=== PATIENT | female | born 1985 | race Caucasian/White ===

== ENCOUNTER → 2021-03-11 14:50 | Outpatient (BNVA) | payer BC, SELFPAY | PROVIDERS: Family Provider Family Medicine; PCP Specialist; Visit Provider Obstetrics & Gynecology | DX: N93.9 Abnormal uterine and vaginal bleeding, unspecified (principal); R39.89 Other symptoms and signs involving the genitourinary system; Z12.4 Encounter for screening for malignant neoplasm of cervix | CPT/HCPCS: 81000; 87077; 87086; 87184; 88175; 88305 ==

== ENCOUNTER → 2021-03-17 10:10 | Outpatient (BNVA) | payer BC, SELFPAY | PROVIDERS: Family Provider Family Medicine; PCP Specialist; Visit Provider Obstetrics & Gynecology | DX: N93.9 Abnormal uterine and vaginal bleeding, unspecified (principal) | CPT/HCPCS: 76830 ==

== ENCOUNTER → 2021-08-01 10:20 | Outpatient (BNVA) | payer BC, SELFPAY | PROVIDERS: Family Provider Family Medicine; PCP Family Medicine; Visit Provider Obstetrics & Gynecology | DX: E03.9 Hypothyroidism, unspecified (principal); N94.6 Dysmenorrhea, unspecified | CPT/HCPCS: 83036; 83525; 84443 ==

== ENCOUNTER → 2021-08-11 10:10 | Outpatient (BNVA) | payer BC, SELFPAY | PROVIDERS: Family Provider Family Medicine; PCP Family Medicine; Visit Provider Obstetrics & Gynecology | DX: Z20.822 Contact with and (suspected) exposure to COVID-19 (principal); E03.9 Hypothyroidism, unspecified; N85.2 Hypertrophy of uterus; N93.9 Abnormal uterine and vaginal bleeding, unspecified | CPT/HCPCS: 87635 ==

== ENCOUNTER → 2025-03-13 14:12 | Outpatient (BNVA) | payer BC, SELFPAY | PROVIDERS: PCP Family Medicine; Visit Provider Family Medicine | DX: E03.9 Hypothyroidism, unspecified (principal); N93.9 Abnormal uterine and vaginal bleeding, unspecified; R63.4 Abnormal weight loss; Z86.32 Personal history of gestational diabetes; E16.1 Other hypoglycemia | CPT/HCPCS: 80053; 83036; 84439; 84481; 85025 ==

== ENCOUNTER 2025-08-22 20:04 | Emergency (ER) | payer BC, SELFPAY ==
--- OUTSIDE RECORDS SUMMARY | 2010-02-09 05:26 | XMS_ITS | Continuity of Care Document ---
Author Organization [facility] Address [address] [place] [id number] Phone Care Team Providers Care Microgrinder Operator Name Role Phone Maximo Ojeda MD Unavailable Unavailable Advance Directives Directive Yes / No Effective Date File Name No Information Encounters Encounter Description Practice Location Reason(s) For Visit Diagnoses Date Provider Providers Copied on Encounter [facility], [address] [place] [address], [id number], [place] tel:[phone] [facility] No Information Rusty Marsh. [address] [place] [place], [place], [id number], [place]. tel:[phone] Family History Family Member Type Diagnosis Age At Onset No Information Payers Payer name Insurance type Covered alliance party ID Authoriza tion(s) No Information Social History Type Description Quantity Date Captured Comments Sex Female Smoking Status No Information Chief Complaint And Reason For Visit No Information Reason For Referral Reason For Referral No Information History Of Present Illness Encounter Date Complaint History Of Prese nt Illness No Information Functional Status Date Functional Assessmen t No Information Instructions Date Instruction Additional Infor mation No Information Assessments Type Assessment Date No Information Patient Care Teams Name Effective Dates (start - stop) Status Members No Information
--- OUTSIDE RECORDS SUMMARY | 2015-01-20 07:30 | XMS_ITS | Continuity of Care Document ---
Author Organization [facility] Address [address] [place] [address] Phone Care Team Providers Care Classified Ad Clerk Name Role Phone Unavailable Unavailable Unavailable Allergies, Adverse Reactions, Alerts Substance Reaction Status Criticality No Known Allergies Active No Inform ation Medications Medication Instructions Dosage Effective Dates (start - stop) Status Comments alprazolam 0.5 mg tablet take 1 tablet by oral route 3 times every day 0.5 MG - Active Procedures Procedure Date WHFO,no joint, prefabricated OFFICE/OUTPATIENT VISIT, NEW Advance Directives Directive Yes / No Effective Date File Name No Information Encounters Encounter Description Practice Location Reason(s) For Visit Diagnoses Date Provider Providers Copied on Encounter OFFICE/OUTPAT IENT VISIT, NEW [facility], [address], [place], [id number], tel:[phone] [facility] wrist pain (chief complaint) De Quervain disease No Information Referring Provider: Santos Marsh, [facility] [place], [address] . tel:[phone] Family History Family Member Type Diagnosis Age At Onset Son Problem (finding) attention defi cit hyperactivity disorder Maternal grandmother Problem (finding) breast cancer Father Problem (finding) diabetes melli tus in first degree relative Paternal grandfather Problem (finding) malignant melan cr Mother Problem (finding) Endometriosis Payers Payer name Insurance type Covered libertarian ID Authoriza tion(s) [place] Medicaid [id number] Social History Type Description Quantity Date Captured Comments Alcohol Use Details beer 4 beers weekly Caffeine Use Details coffee and tea Tobacco Use Status Occasional cigarette smoker Smoking Status Heavy tobacco smoker Smoking Tobacco Use Details Cigarette: No Details Available Cigarette: 1 Packs per day Sex Female Vital Signs Date / Time: Height Weight BMI Pulse Rate Blood Pressure Temperature Respiratory Rate Body Surface Area Head Circumference Head Circ. Percentile Wt./Juan. Percentile BMI percentile Pulse Ox Inhaled Ox 2:15 PM 65.00 in 106.503 kg (234.80 lbs) 39.0 7 kg/m eter (2) 76 /min 108/76 mm[Hg] 99 % Chief Complaint And Reason For Visit From encounter dated '01/20/2015 13:30'. wrist pain (chief complaint). Description: Onset: 1 day ago. Severity level is 6. It occurs intermittently and is fluctuating. Location: right wrist. There is no radiation. The pain is sharp. Context: there is an injury. The pain is aggravated by lifting, movement and pushing. There are no relieving factors. Associated symptoms include decreased mobility and swelling. Pertinent negatives include bruising, joint tenderness, limping, locking and numbness. Reason For Referral Reason For Referral No Information History Of Present Illness Encounter Date Complaint History Of Prese nt Illness wrist pain Onset: 1 day ago . Severity level is 6. It occurs intermittently and is fluctuating. Location: right wrist. There is no radiation. The pain is sharp. Context: there is an injury. The pain is aggravated by lifting, movement and pushing. There are no relieving factors. Associated symptoms include decreased mobility and swelling. Pertinent negatives include bruising, joint tenderness, limping, locking and numbness. Functional Status Date Functional Assessmen t No Information Instructions Date Instruction Additional Infor rene Pt was given [place] medical size medium right thumb spica. Pt was directed to use her right thumb spica while at work for at least two weeks and then to continue using her writst brace at home. Pt was also instructed to continue icing her wrist and take ibuprofen as needed. Prognosis is good. Pt instructed to rtc if symptoms persist. Pt agreed to plan and had no further questions. Related to De Quervain disease Assessments Type Assessment Date assessment De Quervain disease Mental Status Date Cognitive Assessment Orientation - [place] ed to time, place, person, situation. Patient Care Teams Name Effective Dates (start - stop) Status Members No Information
--- OUTSIDE RECORDS SUMMARY | 2025-08-22 20:11 | XMS_ITS | Data Portability ---
Author Organization [facility] [place] [facility] Address [address] [facility] [address] [place] [address] Care Team Providers Care Tool Designer Apprentice Name Role Phone CLIFTON ARGUELLO Primary Care Provider Unavaila ble Assessment Encounter Date Assessment Date Assessment LastModified by Organization Details LastModified Time 11/22/2023 11/22/2023 Difficult to determine if the pain and symptoms are related to cervical radiculopathy or if there is a significant rotator cuff injury. Based on exam rotator cuff injury is definitely a concern. The patient has done conservative measures and has significant uncontrolled pain. Recommend we proceed with MRI. Will transition to Flexeril to see if this improves her discomfort and add tramadol. dcrase Not available 11/24/2023 16:46:29 11/28/2023 11/28/2023 Injections offered. She wants to wait for now. I am not sure what caused her rash. Not available 11/29/2023 06:23:16 12/11/2023 12/11/2023 consider pt if not resolving with conservative measures. Not available 01/19/2024 16:50:04 06/16/2024 06/16/2024 Restricted to less that 30 lbs of smooth lifting. Cannot go back to regular lifting until 2 months post surgery. Not available 06/16/2024 16:54:53 Plan of Treatment Reminders Order Date Submit Date Provider Last Modified By Organization Details Last Modified Time Details Appointments None record ed. Lab None record ed. Referral donita light referr al 2023 Cassandra Daniels ([facility]), [address], [place], [address], 4 09:58:43 Procedures None record ed. Surgeries None record ed. Imaging MRI, should er, w/o contra st 2023 024 [facility], [address], [place], [address], 4 10:36:08 Medication Orders meloxi cam 15 mg tablet 2023 024 [place] [facility] [employer] [facility] #94459, [address], [place], [place], [id number], 4 15:03:21 meloxi cam 15 mg tablet 2023 024 [place] [facility] [employer] [facility]03641, [address], [place], [place], [id number], 4 12:19:42 cyclob enzapr ine 10 mg tablet 2023 024 [facility] [employer] [facility] #90159, [address], [place], [place], [id number], 4 14:04:08 meloxi cam 15 mg tablet 2023 024 [facility], [address], [place], [place], [id number], 4 16:24:49 cyclob enzapr ine 10 mg tablet 2023 024 [facility] [employer] [facility] #23130, [address], [place], [place], [id number], 4 14:04:08 tramad ol 50 mg tablet 2023 0[facility] [employer] [facility], [address], [place], [place], [id number], 4 11:21:01 Patient TargetsNo targets recorded. Patient InstructionsNo instructions recorded. Reason for Referral General Surgeon Referral for Umbilical hernia Referring Physician: Clifton Arguello, Family Medicine, Encounter Date: 03/17/2024 Problems Name Problem SNOMED Code Status Onset Date Resolution Date Notes Provider Name and Address Organization Details Recorded Time section Active 2018 C-secti on 5; 7; 09/09/09 ; 019 2:56PM by Alice Colmenares LPN, Office Visit; Promote d; acuity set as *; Not Available [facility] 3 03:12:59 Appendecto my Active 2018 Appende ctomy; 02/10/08; 019 2:56PM by Alice Colmenares LPN, Office Visit; Promote d; acuity set as *; Not Available [facility] 3 03:12:59 History of tubal ligation 499295635 Active 2018 Tubal Ligatio n; 09/2009 ; 019 2:56PM by Alice Colmenares LPN, Office Visit; Promote d; acuity set as *; Not Available [facility] 3 03:13:01 Hypothyroi dism 51085756 Active 2022 [facility] null, [facility] 3 09:43:45 Skin lesion 56704534 Active 2022 [facility] null, [facility] 3 09:44:04 Adult health examinatio n Active 2022 [facility] null, [facility] 3 09:48:11 Pain of right shoulder joint 363315890233 80968 Active 2023 Bennett Daley MD [address] [place] [address], [phone] , [facility] 4 17:21:48 Cervical radiculopa thy 93115766 Active 2023 Bennett Daley MD [address] [place], [address] , [facility] 4 17:24:23 Allergic reaction to drug 226436918 Active 2023 NELLIE CLARENCE null, [facility] 4 15:53:02 Problem Notes None recorded. Procedures Surgical History Date Name Laterality Status Provider Name and Address Organization Details Recorded Time 05/15/20 24 Hernia Repair completed [facility] 06/16/2024 16:14:07 Appendectomy completed [facility] 09/13/2023 12:54:50 delivery completed [facility] 09/13/2023 12:55:14 Imaging Results None recorded. Procedure Notes None recorded. Medical Equipment None Reported. Allergies No known drug allergies Medications Name Sig Start Date Stop Date Status Note LastModified by Organization Details LastModified Time cyclobenz aprine 10 mg tablet TAKE 1 TABLET BY MOUTH EVERY DAY NEEDED 03/17 completed Not Available Not Available Not Available levothyro xine 175 mcg tablet TAKE 1 TABLET BY MOUTH EVERY DAY 09/13 completed Not Available Not Available Not Available ibuprofen 800 mg tablet TAKE 1 TABLET BY MOUTH EVERY 8 HOURS NEEDED FOR PAIN 12/10 completed Not Available Not Available Not Available meloxicam 15 mg tablet TAKE 1 TABLET BY MOUTH EVERY DAY 2023 active vo JR/tn Not Available Not Available Not Avai lable prednison e 20 mg tablet TAKE 3 TABLETS BY MOUTH DAILY FOR 5 DAYS 12/10 completed Not Available Not Available Not Available penicilli n V potassium 500 mg tablet TAKE 1 TABLET BY MOUTH FOUR TIMES DAILY UNTIL FINISHED 09/13 completed Not Available Not Available Not Available hydrocodo ne 10 mg-acetam inophen 325 mg tablet 09/13 completed Not Available Not Available Not Available tramadol 50 mg tablet TAKE 1 TABLET BY MOUTH EVERY 6 HOURS NEEDED 12/10 completed Not Available Not Available Not Available methocarb anila 750 mg tablet TAKE 1 TABLET BY MOUTH THREE TIMES DAILY NEEDED FOR PAIN 12/10 completed Not Available Not Available Not Available hydrocodo ne 7.5 mg-acetam inophen 325 mg tablet TAKE 1 TABLET BY MOUTH EVERY 6 HOURS FOR 7 DAYS NEEDED FOR PAIN 06/16 completed Not Available Not Available Not Available levothyro xine 125 mcg tablet TAKE 1 TABLET BY MOUTH EVERY DAY 12/10 completed dose change Not Available Not Available Not Available pramipexo le 0.125 mg tablet Take 1 tablet every day by oral route. 12/10 completed Not Available Not Available Not Available docusate sodium 100 mg capsule TAKE ONE CAPSULE BY MOUTH TWICE DAILY FOR 7 DAYS 06/16 completed Not Available Not Available Not Available levothyro xine 112 mcg tablet TAKE 1 TABLET BY MOUTH EVERY DAY 2024 active vo JR/tn Not Available Not Available Not Avai lable ProAir HFA 90 mcg/actua tion aerosol inhaler every four hours, as needed 09/13 completed 1 inhaler; Recorded 12/29/19 22 4:26PM by Falguni Campbell, Phone Encounte r; Refill Quantity : 0; Not Available Not Available Not Available Vitals Date Recorded Body height Body mass index (BMI) Body weight Oxygen saturation Oxygen saturation in Arterial blood by Pulse oximetry Heart rate Respiratory rate Body temperature Provider Name and Address Organization Details Last Updated DateTime 4 157.48 cm 38.2 kg/m2 90042.8 1 g 98 % 98 % 69 /min 16 /min 97.3 [degF] Brandee Llamas [facility] 4 17:10:26 Date Recorded Body height Body mass index (BMI) Body weight Oxygen saturation Oxygen saturation in Arterial blood by Pulse oximetry Heart rate Respiratory rate Body temperature Systolic And Diastolic Provider Name and Address Organization Details Last Updated DateTime 4 157.48 cm 39.2 kg/m2 40304.8 7 g 99 % 99 % 92 /min 18 /min 98.2 [degF] 150/94 mm[Hg] NELLIE CLARENCE [facility] 4 15:48:48 Date Recorded Body height Body mass index (BMI) Body weight Oxygen saturation Oxygen saturation in Arterial blood by Pulse oximetry Heart rate Respiratory rate Body temperature Systolic And Diastolic Provider Name and Address Organization Details Last Updated DateTime 4 157.48 cm 39.4 kg/m2 64552.1 6 g 98 % 98 % 80 /min 18 /min 98.6 [degF] 120/74 mm[Hg] [facility] 4 11:32:48 Date Recorded Body height Body weight Body mass index (BMI) Oxygen saturation Oxygen saturation in Arterial blood by Pulse oximetry Heart rate Respiratory rate Body temperature Systolic And Diastolic Provider Name and Address Organization Details Last Updated DateTime 4 157.48 cm 36553.4 6 g 37 kg/m2 98 % 98 % 60 /min 18 /min 98.1 [degF] 112/76 mm[Hg] [facility] [place] [facility] 4 16:22:54 Social History Question Answer Notes LastModified by makeena Details LastModified Time Tobacco Smoking Status Former Smoker [facility] 09/13/2023 12:52:34 When Did You Quit Smoking? 1-5yearssinc elastcigaret te Information not available 09/13/2023 Sex: Unknown Functional Status Question Answer Note LastModified by [employer] Details LastModified Time Do you use any illicit or recreational drugs? Yes occ marijuana gummi for restless leg Information not available 09/13/2023 What is your level of alcohol consumption? None Information not available 09/13/2023 Are you able to care for yourself independently? Yes Information not available 09/13/2023 Mental Status None recorded. Family History Nothing Reported Notes:Insulin Dependent Diab etes Mellitus; Maternal Grandfather, Maternal Grandmother, Maternal Aunt, Heart disease Maternal Grandmother: Hypothyroidism, Breast Cancer Mother: Hypothyroidism, Lung Cancer Medical History No medical history recorded. Gynecological HistoryNo gynecological history recorded. Obstetrics History GPAL:G 0 P 0 0 0 0 Immunizations Vaccine Type Date Status Note Provider Nam e and Address Organization Details Recorded Time IPV 7 completed NELLIE LIMA null, [facility] 11/28/2023 15:40:49 IPV 1 completed NELLIEANN LIMA null, [facility] 11/28/2023 15:40:49 IPV 8 completed NELLIEANN LIMA null, [facility] 11/28/2023 15:40:49 MMR 4 [facility] 11/28/2023 15:40:49 MMR 8 completed NELLIE LIMA null, [facility] 11/28/2023 15:40:49 Tdap 1 completed NELLIE LIMA null, [facility] 11/28/2023 15:40:49 Td (adult), 2 Lf tetanus toxoid, preservative free, adsorbed 2 completed NELLIE LIMA null, [facility] 11/28/2023 15:40:49 Hep B, adolescent or pediatric 4 completed NELLIE LIMA null, [facility] 11/28/2023 15:40:49 Hep B, adolescent or pediatric 3 completed NELLIE strong [facility] 11/28/2023 15:40:49 Hep B, adolescent or pediatric 3 completed NELLIE CLARENCE null, [facility] 11/28/2023 15:40:49 Hep A, ped/adol, 2 dose 4 completed NELLIE CLARENCE null, [facility] 11/28/2023 15:40:49 Hep A, ped/adol, 2 dose 3 completed NELLIE CLARENCE null, [facility] 11/28/2023 15:40:49 DTaP 7 completed NELLIE CLARENCE null, [facility] 11/28/2023 15:40:49 DTaP 1 completed NELLIE CLARENCE null, [facility] 11/28/2023 15:40:49 DTaP 8 completed NELLIE CLARENCE null, [facility] 11/28/2023 15:40:49 Hep B, adolescent or pediatric 3 completed NELLIE CLARENCE null, [facility] 11/28/2023 15:40:49 Past Encounters Encounter ID Performer Location Encounter Start Date Encounter Closed Date Diagnosis/Indication Diagnosis SNOMED-CT Code Diagnosis ICD10 Code Diagnosis IMO Codes Diagnosis Note [id number] Clifton Arguello MD [facility] ([facility]) [address] [place] [phone] 12/29/2022 09:20:14 12/29/2022 10:41:05 Hypothyroidism 27297389 E03.9 Skin lesion 89810311 L98 .9 Adult heal th examination 132114459 Z00.00 Hyperglycemia 38909225 R 73.9 [id number] Clifton Arguello MD [facility] ([facility]) [address] [place] [phone] 09/13/2023 12:42:40 09/22/2023 09:12:59 Hypothyroidism 12091837 E03.9 Restless l egs syndrome 39438135 G25.81 [id number] Bennett Daley MD [facility] ([facility]) [address] [place] [phone] 11/22/2023 16:48:58 11/22/2023 17:13:10 Pain of right shoulder joint 5959574615 1685334 M25.511 Cervical radiculopathy 58487060 M54.12 [id number] Clitfon Arguello MD [facility] ([facility]) [address] [place] [id number] 11/28/2023 15:32:49 11/28/2023 16:29:36 Pain of right shoulder joint 9675028122 3612319 M25.511 Allergic r eaction to drug 303906596 T50.905A [id number] Clifton Arguello MD [facility] ([facility]) [address] [place] [phone] 12/11/2023 10:39:47 12/11/2023 13:06:18 Pain of right shoulder joint 6318199997 3646458 M25.759 [id number] Clifton Arguello MD [facility] ([facility]) [address] [place] [phone] 03/17/2024 13:48:06 03/17/2024 15:59:40 Umbilical hernia 138485521 K42.9 Pain of ri ght shoulder joint 0523798820 0973848 M25.511 Pain of left wrist 73293 70613 95369 M25.532 Synovial c yst of wrist 402747575 M71.931 [id number] Clifton Arguello MD [facility] ([facility]) [address] [place] [id number] 06/16/2024 14:54:25 06/16/2024 17:01:51 Postoperative visit 413119398 Z48.89 Health Concerns Section Related Observation LastModified by Organization Detai ls LastModified Time None Recorded Concern Status LastModified by Organization Details LastModified Time None Recorded Advance Directives Directive None Recorded Payers Insurance Date Sequence Insurance Name Policy Number Policy Velasquez Covered Member ID Velasquez Member ID Guarantor Name 03/17/2024 1 *SELF PAY* [facility] Le[facility] 06/18/2024 1 [facility] ([facility]) [id number] Antwan Lebron [id number] Trinidad Lebron 06/27/2023 1 [facility] [place] [facility] [id number] Antwan Lebron [id number] Trinidad Lebron Notes Date Note Type Note Provider Name and Address Organization Details Recorded Time 4 text/html Musculoskeletal PainReported by PatientHPIFor quality, patient reportssharpandtingling. For severity, patient reportsdriving impairment,worsening,interf eres with sleep, andinterferes with work/school. For associated symptoms, patient reportstinglingandnumbness of the legs/feetbut reportsno feverandno weak limbs. For location, patient reportsright shoulder,right arm,right elbow,right wrist, andright hand. For duration, patient reportspresent <1 month(started 14 days ago). For timing, patient reportsdate of onset: (14 days ago),intermittent,pain at night, andsudden. For context, patient reportsunusual activity. For alleviating factors, patient reportsmedications: motrin, methocarbanol, prednisone. For aggravating factors, patient reportsmovement/positioning andtwisting. For adls affected, patient reportsdressing. For prior tests/treatments, (gabapentin of mother in laws; 's pain medication).ROS as noted in the HPI Bennett Daley MD [address] [place] [address], [phone], [facility] 11/24/2023 16:46:48 4 text/html General Rash/Skin LesionReported by PatientHPIFor quality, patient reportsitchy,red, andmultiple. For location, patient reportschest,abdomen, andlegs. For severity, patient reportsmoderate. Right shoulder pain, decreased ROM Clifton Arguello MD [address] [place] [address], [phone], [facility] 11/29/2023 06:23:26 4 text/html Musculoskeletal PainReported by PatientHPIFor quality, patient reportssharp. For severity, patient reportsdriving impairment,worsening,interf eres with sleep, andinterferes with work/school. For location, patient reportsright shoulder,right arm,right elbow, andright hand. For timing, patient reportsconstant,pain at night, andsudden. For aggravating factors, patient reportsmovement/positioning andtwisting. For associated symptoms, patient reportsno fever. For duration, (started the end of october).ROS as noted in the HPI Pt has sharp pain in her right side from her neck to her forearm, at times swelling in her collar bone and arm, Pt states she took the meloxicam and her last muscle relaxer this morning, when she takes them she will get some relief for a couple hours Clifton Arguello MD [address] [place] [address], [phone], [facility], [facility] 01/19/2024 16:50:12 4 text/html Abdominal PainReported by PatientAbdominal PainFor quality, patient reportsachingandsharp. For associated symptoms, patient reportsnauseabut reportsno fever,no shortness of breath,no vomiting,no diarrhea,no constipation,normal stool,no blood in stool,normal appetite,no jaundice,no dysuria,no fatigue, andno cough. For severity, patient reportsmildandpain level 2/10. For duration, patient reportsconstant. For onset/timing, patient reportsacute. Musculoskeletal PainReported by PatientHPIFor quality, patient reportssharp. For severity, patient reportsdriving impairment,worsening,interf eres with sleep, andinterferes with work/school. For location, patient reportsright shoulder,right arm, and__ elbow. For timing, patient reportsconstantandpain at night. For aggravating factors, patient reportsmovement/positioning andtwisting. For associated symptoms, patient reportsno fever. For duration, (started the end of october).ROS as noted in the HPI Pt is still having right shoulder pain, she has 2 knots on her left wrist that is painful, pt had hernia surgery years ago and last week she was lifting on one of her pts and she started having abdominal pain it like a ripping sharp pain radiating into her chest and down to her groin, last she noticed it was sticking out again. Clifton Arguello MD [address] [place] [address], [phone], [facility] 03/17/2024 22:27:11 4 text/html Pt had hernia surgery on 05/15/24, pt would like to know if she has any restrictions . Pt states last time she saw the surgeon he said she could lift 15 lbs and that was 05/30/24. Clifton Arguello MD [address] [place] [address], [phone], [facility] 06/16/2024 16:56:22 OBGyn Episode No OBEpisode recorded.
[2025-08-22 20:13] VITALS: BP 135/85; PULSE 64; RESP 18; TEMP 36.8; O2SAT 97; BMI 31.8
[2025-08-22 21:29] VITALS: BP 123/69; PULSE 69; RESP 14; O2SAT 98
--- NOTE | 2025-08-22 21:54 | W.ED.RECABL ---
HPI - Recheck/Abnormal Lab/Rx General: Chief Complaint: Recheck/Abnormal Lab/Rx Stated Complaint: Says took Zoloft, having side effects Time Seen by Provider: 08/22/25 21:14 History of Present Illness: Patient is 40-year-old female that presents to the ED with symptoms of side effect from Zoloft. Last dose of Zoloft: 12:00/noon today Symptoms: Patient's noted she had catatonic, stiff movements. She improved with administering propranolol. assisted patient with a bath. She had clenched her hands, and had nails dug into her hand. Patient/ denied suicide gestures. This has been throughout today. Initially, patient was started on Zoloft this week, and notes they have had issues ever since starting them. Related Data Previous Rx's ?Medication ?Instructions ?Recorded levothyroxine 100 mcg tablet See Rx Instructions .Route 06/16/25 .COMPLEX #90 tabs amlodipine 5 mg tablet See Rx Instructions .Route 07/14/25 .COMPLEX #90 tabs temazepam 15 mg capsule 15 mg PO .qpm PRN insomnia #7 caps 07/14/25 sertraline 25 mg tablet 25 mg PO DAILY #30 tabs 08/18/25 propranolol 10 mg tablet See Rx Instructions .Route 08/20/25 .COMPLEX #270 tabs Allergies Allergy/AdvReac Type Severity Reaction Status Date / Time clonidine Allergy Intermediate whelps Verified 08/18/25 08:30 metformin Allergy Intermediate nausea Verified 08/18/25 08:30 sulfamethoxazole (From Allergy Intermediate adr-rash Verified 08/18/25 08:30 Bactrim) trimethoprim (From Bactrim) Allergy Intermediate adr-rash Verified 08/18/25 08:30 latex Allergy rash Verified 08/18/25 08:30 methocarbamol Allergy ALGY-Rash Verified 08/18/25 08:30 Review of Systems Const: Denies: fever(s) or chills Eyes: Denies: change in vision ENMT: Denies: change in hearing Card: Denies: chest pain or palpitations Resp: Denies: dyspnea GI: Denies: abdominal pain, nausea or vomiting Skin/Breast: Denies: rash Neuro: Denies: headache(s) or dizziness Psych: Reports: anxiety, depression, panic attacks, loss of interest and other (Catatonic) Jose Armando/Lymph: Denies: easy bruising or easy bleeding [facility] ED PFSH: Medical History (Updated 08/23/25 @ 00:46 by BEHZAD Chan) Major depression, chronic Generalized anxiety disorder Hypertension, essential Prediabetes 5.8 on 03.13.25 Encounter for surveillance of abnormal nevi Sclerotic fibroepithelial lesion of right breast Hyperinsulinemia Hypothyroidism PCOS (polycystic ovarian syndrome) History of gestational diabetes mellitus (GDM) Surgical History Hx of tubal ligation had BTL then a reversal Hx of umbilical hernia repair X 2 History of appendectomy 2008 History of 2004,2008,2006 Family History Mother Cancer lung cancer Thyroid disease hypothyroidism Grandmother Breast cancer maternal Diabetes Paternal Denies family history of Ovarian cyst Clotting disorder Chronic kidney disease (CKD) Bleeding disorder Hypertension Stroke Social History Smoking and tobacco/nicotine status: former use of tobacco/nicotine Quit status (tobacco/nicotine): has quit using Year quit tobacco: 2018 Alcohol intake: never Substance/Drug Use: current Substance/Drug use frequency: daily Other substance/drug use details: [facility] Household members: spouse and children Number of children: 3 Highest education level completed: Some College, No Degree Current occupational status: employed Current occupation: [employer] ([employer]) Physical Exam Const: COMMON NORMALS: no acute distress, average body habitus and patient oriented x3 HENMT: COMMON NORMALS: normocephalic and atraumatic HEAD & SCALP: normocephalic and atraumatic Neck/C-Spine: COMMON NORMALS: full ROM and no lymphadenopathy Lymph: LYMPHATIC: no lymphadenopathy noted Chest: COMMONS NORMALS: normal inspection of the chest and normal palpation of entire chest wall Resp: COMMON NORMALS: normal respiratory effort, No retractions and No use of accessory muscles Cardio: COMMON NORMALS: regular rate and regular rhythm RATE: regular rate RHYTHM: regular rhythm GI: COMMON NORMALS: Normal to inspection, nondistended, normoactive bowel sounds present, Soft to palpation, non-tender and No hepatosplenomegaly present PALPATION: Yes Soft to palpation and Yes No hepatosplenomegaly present : COMMON NORMALS: Yes no CVA tenderness BLADDER/KIDNEY EXAM: Yes no CVA tenderness Back/Pelvis: COMMON NORMALS: no CVA tenderness Extremity: COMMON NORMALS: normal to inspection, full ROM and capillary refill normal Neuro: COMMON NORMALS: patient oriented x3 Psych: COMMON NORMALS: speech normal ATTITUDE: Yes calm, Yes bizarre, Yes uncooperative, Yes evasive, No Belligerent attititude/behavior present, No aggressive and No hostile SPEECH: Yes normal speech and Yes incoherent MOOD & AFFECT: No euthymic mood and Yes depressed mood Course Reevaluation(s): Reevaluation #1: 2240: Improved, eyes open spontaneously, moves all extremity Vital Signs: Vital signs: Vital Signs Temperature 98.3 F 08/22/25 20:13 Pulse Rate 62 08/22/25 23:16 Respiratory Rate 18 08/22/25 22:41 Blood Pressure 119/70 08/22/25 22:41 Pulse Oximetry 99 08/22/25 23:16 Oxygen Delivery Me thod Room Air 08/22/25 22:41 MDM - Recheck/Abnormal Lab/Rx Medical Decision Making Patient is 40-year-old female with adverse reaction to Zoloft. This has worsened during the time she has been on it. Propranolol has seemed to decrease the side effects of the catatonic nature. Patient was given Cogentin IM x 1, and Benadryl, which has stopped her muscle spasms. Patient and are quite thankful. I have asked them not to restart the Zoloft and to check with the physician on Sunday. I have confirmed that patient is not suicidal or having suicidal thoughts This appears to be a straightforward adverse reaction. All other questions answered to their satisfaction. Medical Records I reviewed the patient's medical records. No radiology studies performed this visit Discharge Plan Discharge Patient Disposition: Home Clinical Impression: Extrapyramidal disorder, Adverse drug reaction Condition: Stable Prescriptions: No Action temazepam 15 mg capsule 15 mg PO .qpm PRN (Reason: insomnia) Qty: 7 0RF sertraline 25 mg tablet 25 mg PO DAILY Qty: 30 0RF levothyroxine 100 mcg tablet See Rx Instructions .ROUTE .COMPLEX Qty: 90 0RF Dose Instruction: TAKE 1 TABLET BY MOUTH DAILY REPLACES 112MCG Rx Instructions: TAKE 1 TABLET BY MOUTH DAILY REPLACES 112MCG amlodipine 5 mg tablet See Rx Instructions .ROUTE .COMPLEX Qty: 90 0RF Dose Instruction: TAKE 1 TABLET BY MOUTH DAILY Rx Instructions: TAKE 1 TABLET BY MOUTH DAILY propranolol 10 mg tablet See Rx Instructions .ROUTE .COMPLEX Qty: 270 0RF Dose Instruction: TAKE 1 TABLET BY MOUTH THREE TIMES DAILY NEEDED FOR ANXIETY Rx Instructions: TAKE 1 TABLET BY MOUTH THREE TIMES DAILY NEEDED FOR ANXIETY Discharge Orders: Discharge ED (Routine); Ordered 08/22/25 Ordered By: Mell Vides Referrals: Felicia Hampton MD [Primary Care Provider, Family Practice] Discharge Diet: Usual diet Discharge Activity: Resume usual activity Patient Instructions: Extrapyramidal Symptoms (ED), Patient Portal & [place] Instructions Activity Restrictions/Additional Instructions: Do not take any more Zoloft You may take the propranolol as directed Temazepam is fine for insomnia Tylenol, ibuprofen is fine for headaches You may take Benadryl [id number] for restlessness. I would get liquid Benadryl that is 12.5 mg / 5 mL, and take 10 mL every 6 hours as needed. Call your doctor on Sunday for an appointment early next week Return to ED if you do have suicide thoughts, or plan, or homicide, or hallucinations. Thank you for choosing [facility] for your healthcare needs today. You have been screened and evaluated and felt safe for discharge. Health conditions do change or evolve sometimes and as such it is important that you follow up with your Primary Doctor to be re checked, 3-5 days is a general good time frame for follow up. You are always welcome to return to the ED for re assessment if your symptoms are worsening or you have new concerns Stand Alone Forms: Work/School Release Print Language: Greenlandic Coding Level of Care Code ED Dinkey [employer] Operator for Maral Turner
[2025-08-22 22:00] VITALS: BP 98/62; PULSE 66; RESP 16; O2SAT 98
[2025-08-22] MEDS: diphenhydrAMINE 50 mg/mL SDV 1mL 25 MG IM ×2 (22:03→23:51)
[2025-08-22] MEDS: benztropine 1 mg/mL SDV 2 mL IM (22:04)
[2025-08-22 22:41] VITALS: BP 119/70; PULSE 63; RESP 18; O2SAT 95
[2025-08-22 23:16] VITALS: PULSE 62; O2SAT 99
== END 2025-08-22 23:55 | disposition home or self-care (01) ==
PROVIDERS: Emergency Provider Physician Assistant; PCP Family Medicine
DX: G25.9 Extrapyramidal and movement disorder, unspecified (principal); T43.225A Adverse effect of selective serotonin reuptake inhibitors, initial encounter; X58.XXXA Exposure to other specified factors, initial encounter; Z87.891 Personal history of nicotine dependence; I10 Essential (primary) hypertension
CPT/HCPCS: 96372; 99284; J0515; J1200; J9999